=== PATIENT | male | born 1965 | race Caucasian/White ===

== ENCOUNTER 2024-10-02 19:46 | Emergency (ER) | payer OTHER ==
[2024-10-02 19:52] VITALS: BP 130/90; PULSE 82; RESP 16; TEMP 97.7; BMI 25.1
[2024-10-02 20:50] LABS: INR 1.01 (0.83-1.09); PROTHROMBIN TIME (PATIENT) 11.5 SEC (9.7-13.0)
[2024-10-02 20:52] LABS: HEMATOCRIT 43.8 % (35.4-49); HEMOGLOBIN 14.9 G/dL (11.7-16.9); MCH 29.9 pg (25.7-33.7); MCHC 34.1 g/dl (32.0-35.9); MEAN CELL VOLUME 87.6 fl (80-96); MEAN PLT VOLUME 8.3 fl (7.5-11.1); PLATELET COUNT 219.5 10^3/uL (134-434); RDW 13.7 % (11.9-15.9); WHITE BLOOD COUNT 9.6 10^3/uL (4.0-10.8)
[2024-10-02 21:15] LABS: ALBUMIN 4.5 g/dl (3.4-5.0); ALK PHOS 88 U/L (45-117); ANION GAP 9 mmol/L (4-13); BILIRUBIN,TOTAL 0.8 mg/dl (0.2-1); CALCIUM 9.6 mg/dl (8.5-10.1); CHLORIDE 104 mmol/L (98-107); CO2 26 mmol/L (21-32); CREATININE 0.8 mg/dl (0.6-1.3); GLUCOSE,RANDOM 105 mg/dl (74-106); POTASSIUM 4.7 mmol/L (3.5-5.1); SGOT/AST 31 U/L (15-37); SGPT/ALT 24 U/L (7-52); SODIUM 139 mmol/L (136-145); TOT PROT 6.8 g/dl (6.4-8.2)
[2024-10-02 21:18] LABS: PLATELET ESTIMATE ADEQUATE
[2024-10-02] MEDS ORDERED: ACETAMINOPHEN INJECTION 100 ML ONE (21:50)
[2024-10-02] MEDS: ACETAMINOPHEN 1000 MG/100 ML BAG IVPB ONE (21:53)
== END 2024-10-02 22:25 | disposition home or self-care (01) ==
LOC: FER 19:46
PROC: 3E033NZ Introduction of Analgesics, Hypnotics, Sedatives into Peripheral Vein, Percutaneous Approach (ICD-10-PCS; principal; 2024-10-02)
DX: I31.9 Disease of pericardium, unspecified (principal); R07.89 Other chest pain
CPT/HCPCS: 36415; 71046-TC-FY; 80053; 84484; 85027; 85610; 85651; 86140; 93005; 99285-25; J0131